=== PATIENT | female | born 1950 | race Two or more races ===

== ENCOUNTER 2019-01-20 00:50 | Outpatient (CLI) | payer MEDICARE ==
[~2019-01-20 00:50] MED LIST: BENA10TA74 PO; HUM7525 SQ; IBUPROFEN PO; INSU300I SQ; SIMV5TAB58 PO
== END 2019-01-20 23:59 | disposition home or self-care (01) ==
LOC: DIABETIC 00:50
PROVIDERS: ATTEND Family Medicine
DX: E11.65 Type 2 diabetes mellitus with hyperglycemia (principal); Z79.4 Long term (current) use of insulin; Z79.84 Long term (current) use of oral hypoglycemic drugs
CPT/HCPCS: G0108

== ENCOUNTER 2019-02-18 01:07 | Outpatient (CLI) | payer MEDICARE | END 2019-02-18 23:59 | disposition home or self-care (01) | LOC: DIABETIC 01:07 | PROVIDERS: ATTEND Family Medicine | DX: E11.9 Type 2 diabetes mellitus without complications (principal); Z71.3 Dietary counseling and surveillance | CPT/HCPCS: G0108 ==

== ENCOUNTER 2023-05-29 06:50 | Emergency (ER) | payer MEDICARE ==
[~2023-05-29] VITALS: Ht 157.5 cm; Wt 79.6 kg
[2023-05-29 06:54] VITALS: BP 162/75
== END 2023-05-29 07:49 | disposition home or self-care (01) ==
LOC: ER 06:51
DX: I10 Essential (primary) hypertension (principal); E78.00 Pure hypercholesterolemia, unspecified; E11.9 Type 2 diabetes mellitus without complications; G89.29 Other chronic pain; Z90.49 Acquired absence of other specified parts of digestive tract; Z79.899 Other long term (current) drug therapy
CPT/HCPCS: 71046; 93005; 99283